=== PATIENT | male | born 1970 | race Two or more races ===

== ENCOUNTER 2017-08-05 10:44 | Emergency (ER) | payer BC ==
[2017-08-05] MEDS ORDERED: Ketorolac 30 MG/ML SDV IVPUSH ONE (11:25)
--- NOTE | 2017-08-05 11:28 | EDM.PDOC ---
ED HPI GENERAL MEDICAL PROBLEM - General Chief Complaint: Fever Stated Complaint: ABDOMINAL PAIN Time Seen by Provider: 08/05/17 11:10 Source of Information: Reports: Patient, Family History Limitations: Reports: Language Barrier - History of Present Illness INITIAL COMMENTS - FREE TEXT/NARRATIVE: 47-year-old male presents with muscle pain, generalized malaise and fever for the past 12-24 hours. He worked hard yesterday, lifting heavy boxes for 8 straight hours, last night he had chills and today has abdominal pain and upper extremity pain in the shoulders and upper arms. No nausea or vomiting, no dysuria. No rashes. He has no tick exposure or exposure to someone else that's ill. 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 Severity: Moderate Associated Symptoms: Reports: Fever/Chills, Malaise. Denies: Cough, Headaches, Loss of Appetite, Nausea/Vomiting, Shortness of Breath Generalized Pain Score (Numeric/FACES): 5 - Related Data Allergies Allergy/AdvReac Type Severity Reaction Status Date / Time No Known Allergies Allergy Verified 08/05/17 11:07 Home Meds: Home Meds Acetaminophen [Tylenol] 08/05/17 [History] Aspirin 08/05/17 [History] Social & Family History - Tobacco Use Smoking Status *Q: Heavy Tobacco Smoker Years of Tobacco use: 20 Packs/Tins Daily: 1 - Caffeine Use Caffeine Use: Reports: Coffee, Soda - Recreational Drug Use Recreational Drug Use: No ED ROS GENERAL - Review of Systems Review Of Systems: See Below Constitutional: Reports: Fever, Chills, Malaise HEENT: Reports: No Symptoms Respiratory: Denies: Shortness of Breath, Cough Cardiovascular: Denies: Chest Pain GI/Abdominal: Reports: Abdominal Pain. Denies: Constipation, Diarrhea, Nausea, Vomiting : Reports: No Symptoms Musculoskeletal: Reports: Muscle Pain (Especially in his upper extremities and shoulders) Skin: Reports: No Symptoms. Denies: Rash Neurological: Reports: No Symptoms ED EXAM, GENERAL - Physical Exam Exam: See Below Exam Limited By: No Limitations General Appearance: Alert, No Apparent Distress (Looks uncomfortable but not distressed) Eye Exam: Bilateral Eye: Normal Inspection Respiratory/Chest: No Respiratory Distress, Lungs Clear Cardiovascular: Regular Rate, Rhythm, Tachycardia GI/Abdominal: Soft, Tender (Does react with tenderness to palpation across the lower abdomen, especially the right side) Extremities: Normal Inspection Neurological: Alert, Oriented Psychiatric: Normal Affect, Normal Mood Skin Exam: Warm, Dry Course - Vital Signs Last Recorded V/S: Last Vital Signs Temp 99.5 F 08/05/17 11:09 Pulse 112 H 08/05/17 11:09 Resp 15 08/05/17 11:09 BP 100/75 08/05/17 11:09 Pulse Ox 94 L 08/05/17 11:09 - Orders/Labs/Meds Labs: Laboratory Tests 08/05/17 08/05/17 Range/Units 11:30 11:30 WBC 11.6 H (4.5-11.0) K/uL RBC 5.22 (4.30-5.90) M/uL Hgb 16.4 H (12.0-15.0) g/dL Hct 48.2 (40.0-54.0) % MCV 92 (80-98) fL MCH 31 (27-31) pg MCHC 34 (32-36) % Plt Count 205 (150-400) K/uL Neut % (Auto) 59 (36-66) % Lymph % (Auto) 23 L (24-44) % [place] % (Auto) 16 H (2-6) % Eos % (Auto) 3 (2-4) % Baso % (Auto) 0 (0-1) % Sodium 135 L (140-148) mmol/L Potassium 4.3 (3.6-5.2) mmol/L Chloride 100 (100-108) mmol/L Carbon Dioxide 27 (21-32) mmol/L Anion Gap 12.3 (5.0-14.0) mmol/L BUN 11 (7-18) mg/dL Creatinine 1.2 (0.8-1.3) mg/dL Est Cr Clr Drug Dosing 69.41 mL/min Estimated GFR (MDRD) > 60 (>60) Glucose 108 H (74-106) mg/dL Calcium 8.8 (8.5-10.1) mg/dL Total Bilirubin 0.7 (0.2-1.0) mg/dL AST 18 (15-37) U/L ALT 29 (12-78) U/L Alkaline Phosphatase 55 (46-116) U/L Total Protein 7.7 (6.4-8.2) g/dL Albumin 3.2 L (3.4-5.0) g/dL Globulin 4.5 H (2.3-3.5) g/dL Albumin/Globulin Ratio 0.7 L (1.2-2.2) Meds: Medications Discontinued Medications Generic Name Dose Route Start Last Admin Trade Name Freq PRN Reason Stop Dose Admin Sodium Chloride 1,000 mls @ 1,000 mls/hr 08/05/17 11:30 08/05/17 11:36 Normal Saline IV 1,000 mls/hr ASDIRECTED IVELISSE Administration Sodium Chloride 85 mls @ 3 mls/sec 08/05/17 12:46 08/05/17 12:58 Normal Saline IV 08/05/17 12:47 3 mls/sec ONETIME ONE Administration Iopamidol 150 ml 08/05/17 13:00 08/05/17 12:58 Isovue-300 (61%) IV 150 ml . DIRECTED IVELISSE Administration Ketorolac Tromethamine 30 mg 08/05/17 11:25 08/05/17 11:37 Toradol IVPUSH 08/05/17 11:26 30 mg ONETIME ONE Administration Levofloxacin 500 mg 08/05/17 14:15 08/05/17 14:19 Levaquin PO 08/05/17 14:16 500 mg ONETIME ONE Administration Sodium Chloride 10 ml 08/05/17 12:46 08/05/17 12:58 Saline Flush FLUSH 10 ml ONETIME PRN Administration PER RADIOLOGY PROTOCOL - Re-Assessments/Exams Free Text/Narrative Re-Assessment/Exam: 08/05/17 11:28 An IV was started, patient was given 1 L of fluids and 30 mg of IV Toradol. CBC and CMP were obtained. 08/05/17 13:44 White blood cell count was elevated, the rest of his labs were reassuring. CT the abdomen and pelvis actually revealed a left upper lobe pneumonia. Intra- abdominal findings were negative. Patient was given 500 mg of oral Levaquin, and will take 500 mg daily for the next 10 days. He can return anytime if not improving satisfactorily. He should recheck in 10-14 days. Departure - Departure Time of Disposition: 14:30 Disposition: Home, Self-Care 01 Condition: Good Clinical Impression: Pneumonia Qualifiers: Pneumonia type: due to unspecified organism Laterality: right Lung location: upper lobe of lung Qualified Code(s): J18.1 - Lobar pneumonia, unspecified organism - Discharge Information Instructions: Community-Acquired Pneumonia, Adult, [id number] Referrals: PCP,None [Primary Care Provider] - Forms: ED Department Discharge Care Plan Goals: Rest, fluids, and take antibiotic once daily every morning for 10 days. No work for the next 3 days. Return if worsening such as shortness of breath despite taking the antibiotics.
[2017-08-05] MEDS ORDERED: Sodium Chloride 0.9% 1,000 ML IV SCH (11:30)
[2017-08-05] MEDS ORDERED: Sodium Chloride 0.9% 10 ML Syringe FLUSH PRN (12:46)
[2017-08-05] MEDS ORDERED: Iopamidol 612 MG/ML 150 ML Bottle IV SCH (13:00)
[2017-08-05] MEDS ORDERED: Levofloxacin 250 MG Tab PO ONE (13:29)
--- NOTE | 2017-08-05 13:36 | CT ---
Abdomen Pelvis w Cont CLINICAL HISTORY: Fever, abdominal pain COMPARISON: None. TECHNIQUE: Axial tomographic images are obtained from the dome of the diaphragm to the pubic symphysi s without IV contrast enhancement. No oral contrast was used. Auto dosage reduction and iterative rec onstruction techniques employed. FINDINGS: There is moderate breathing motion. There is patchy infiltrate-like density in the right up per lobe suspect for pneumonia. There is a calcification in the right lower lobe which is likely gran ulomatous. There are no effusions The liver is upper limits of normal size. There appears to be some fatty infiltration.. The gallbladder is contracted. The spleen has a normal size and shape. The pancr eas shows no mass or inflammatory change. The adrenal glands appear normal bilaterally. The kidneys s how no mass, stones or hydronephrosis. The aorta has a normal contour. There is no suspicious retrope ritoneal adenopathy. The bladder has a normal contour. Seminal vesicles are mildly enlarged. No ingui nal mass is identified. IMPRESSION: Right upper lobe patchy density most likely pneumonic infiltrate Borderline hepatomegaly with diffuse fatty infiltration
[2017-08-05] MEDS ORDERED: Levofloxacin 500 MG Tab PO ONE (14:15)
== END 2017-08-05 14:30 | disposition home or self-care (01) ==
LOC: JP.ED 10:44
DX: J18.9 Pneumonia, unspecified organism (principal); F17.210 Nicotine dependence, cigarettes, uncomplicated
CPT/HCPCS: 36415; 74177; 80053; 85025; 96361; 96374; 99284; A9270; J1885; J7030; J7050

== ENCOUNTER 2017-08-09 18:14 | Emergency (ER) | payer BC ==
[2017-08-09] MEDS ORDERED: Albuterol 0.083% 2.5 MG/3 ML Neb Soln NEB ONE (19:34)
[2017-08-09] MEDS ORDERED: Budesonide 0.5 MG/2 ML Neb Susp NEB ONE (19:34)
--- NOTE | 2017-08-09 19:39 | EDM.PDOC ---
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 Treated with Levaquin. 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 Still was not breathing completely normal yet. Fever has resolved. No history of pneumonia or lung disease No other concerns currently - Related Data Allergies Allergy/AdvReac Type Severity Reaction Status Date / Time No Known Allergies Allergy Verified 08/05/17 11:07 Home Meds: Home Meds Acetaminophen [Tylenol] 650 mg PO Q6H 08/05/17 [History] Levofloxacin 500 mg PO DAILY 08/09/17 [History] predniSONE [Prednisone] 40 mg PO DAILY #10 tablet 08/09/17 [Rx] Social & Family History - Tobacco Use Years of Tobacco use: 20 Packs/Tins Daily: 1 Used Tobacco, but Quit: No - Caffeine Use Caffeine Use: Reports: Coffee, Soda - Recreational Drug Use Recreational Drug Use: No ED ROS GENERAL - Review of Systems Review Of Systems: See Below Constitutional: Reports: Fever (Improved). Denies: Decreased Appetite, Weight Loss HEENT: Reports: No Symptoms Respiratory: Reports: Shortness of Breath, Cough. Denies: Sputum Cardiovascular: Reports: Chest Pain, Dyspnea on Exertion (Some right-sided ache) . Denies: Palpitations GI/Abdominal: Reports: No Symptoms Musculoskeletal: Reports: No Symptoms Skin: Reports: No Symptoms Neurological: Reports: No Symptoms ED EXAM, GENERAL - Physical Exam Exam: See Below Exam Limited By: No Limitations General Appearance: Alert, No Apparent Distress, Other (Appears a little tired but otherwise well, vital signs normal) Eye Exam: Bilateral Eye: Normal Inspection, PERRL Ears: Normal External Exam, Hearing Grossly Normal Nose: Normal Inspection Throat/Mouth: Normal Inspection Respiratory/Chest: No Respiratory Distress, No Accessory Muscle Use, Other ( Slightly prolonged expiration, no rales or wheezes) Cardiovascular: Normal Peripheral Pulses, Regular Rate, Rhythm Neurological: Alert, No Motor/Sensory Deficits Skin Exam: Warm, Dry, Intact, No Rash Course - Vital Signs Last Recorded V/S: Last Vital Signs Temp 36.2 C 08/09/17 19:38 Pulse 89 08/09/17 19:56 Resp 14 08/09/17 19:56 BP 108/69 08/09/17 19:38 Pulse Ox 96 08/09/17 19:56 - Orders/Labs/Meds Orders: Active Orders 24 hr Category Date Time Status RT Aerosol Therapy [RC] ASDIRECTED Care 08/09/17 19:35 Active Chest 2V [CR] Stat Exams 08/09/17 19:34 Taken Meds: Medications Discontinued Medications Generic Name Dose Route Start Last Admin Trade Name Freq PRN Reason Stop Dose Admin Albuterol 2.5 mg 08/09/17 19:34 08/09/17 19:43 Proventil Neb Soln [facility] 08/09/17 19:35 2.5 mg ONETIME ONE Administration Budesonide 0.5 mg 08/09/17 19:34 08/09/17 19:55 Pulmicort NEB 08/09/17 19:35 0.5 mg ONETIME ONE Administration Prednisone 40 mg 08/09/17 21:11 08/09/17 21:27 Prednisone PO 08/09/17 21:12 40 mg ONETIME ONE Administration - Re-Assessments/Exams Free Text/Narrative Re-Assessment/Exam: 08/09/17 19:38 47-year-old male with pneumonia diagnosed 4 days ago, still has some shortness of breath. Albuterol and budesonide by nebulizer Chest x-ray 08/09/17 21:11 Chest x-ray shows a faint patch left upper lobe CT scan reviewed showed right upper lobe pneumonia Patient was told he had left upper lobe In any case cough and fever have improved. Does have some chest tightness Improved nebulizer Prednisone 20 mg by mouth Continue current antibiotics Note for work written Departure - Departure Time of Disposition: 21:02 Disposition: Home, Self-Care 01 Clinical Impression: Bronchospasm Community acquired pneumonia Qualifiers: Laterality: right Lung location: upper lobe of lung Qualified Code(s): J18.1 - Lobar pneumonia, unspecified organism - Discharge Information Prescriptions: predniSONE [Prednisone] 40 mg PO DAILY #10 tablet Instructions: Bronchospasm, Adult, Community-Acquired Pneumonia, Adult Referrals: PCP,None [Primary Care Provider] - Forms: ED Department Discharge, ED Return to Work/School Form Additional Instructions: Continue your antibiotic Levaquin You have some spasm in your airways and for this you're being prescribed 5 days of prednisone Get rechecked in 10 days - My Orders Last 24 Hours: My Active Orders 08/09/17 19:34 Chest 2V [CR] Stat 08/09/17 19:35 RT Aerosol Therapy [RC] ASDIRECTED - Assessment/Plan Last 24 Hours: My Active Orders 08/09/17 19:34 Chest 2V [CR] Stat 08/09/17 19:35 RT Aerosol Therapy [RC] ASDIRECTED
[2017-08-09] MEDS ORDERED: predniSONE 20 MG Tab PO ONE (21:11)
--- NOTE | 2017-08-10 08:51 | CR ---
Chest 2V INDICATION: Cough, dyspnea, right upper lobe pneumonia COMPARISON: None FINDINGS: Two views. Heart size normal. Left upper lobe infiltrate consistent with pneumonia. Remainder of the lungs clear. No pleural effusion.
== END 2017-08-09 21:36 | disposition home or self-care (01) ==
LOC: JP.ED 18:14
DX: J98.01 Acute bronchospasm (principal); J18.9 Pneumonia, unspecified organism; F17.210 Nicotine dependence, cigarettes, uncomplicated; Z79.899 Other long term (current) drug therapy
CPT/HCPCS: 71046; 94640; 99284; A9270

== ENCOUNTER 2019-04-18 04:41 | Emergency (ER) | payer BC, OTHER ==
--- NOTE | 2019-04-18 05:43 | EDM.PDOC ---
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 He has significant discomfort in the left foot, pain, and some bruising developing on the top of the foot. Ankle is not involved. No other injury. Onset: Sudden Duration: Hour(s): (Within the last hour) Location: Reports: Lower Extremity, Left Associated Symptoms: Reports: No Other Symptoms left foot Pain Score (Numeric/FACES): 7 - Related Data Allergies Allergy/AdvReac Type Severity Reaction Status Date / Time No Known Allergies Allergy Verified 04/18/19 05:01 Home Meds: Home Meds NK [No Known Home Meds] 04/18/19 [History] Past Medical History - Infectious Disease History Infectious Disease History: Reports: Chicken Pox Social & Family History - Tobacco Use Smoking Status *Q: Current Every Day Smoker Years of Tobacco use: 30 Packs/Tins Daily: 1 - Caffeine Use Caffeine Use: Reports: Coffee, Soda - Recreational Drug Use Recreational Drug Use: No Review of Systems - Review of Systems Review Of Systems: See Below Constitutional: Denies: Fever Respiratory: Denies: Shortness of Breath Cardiovascular: Denies: Chest Pain Skin: Reports: Bruising (Bruising is developing on the top of the foot) ED EXAM, GENERAL - Physical Exam Exam: See Below Exam Limited By: No Limitations General Appearance: Alert, No Apparent Distress Head: Atraumatic Respiratory/Chest: No Respiratory Distress Extremities: Other (Exam is otherwise limited to the lower extremities. The right foot is normal, the left has significant swelling over the dorsal aspect with a small amount of bruising developing. He is very tender to palpation but not deformed other than the swelling) Skin Exam: Ecchymosis (A small amount of ecchymosis is developing on the top of the foot) Course - Vital Signs Last Recorded V/S: Last Vital Signs Temp 96.5 F L 04/18/19 05:05 Pulse 89 04/18/19 05:05 Resp 17 04/18/19 05:05 BP 127/81 04/18/19 05:05 Pulse Ox 95 04/18/19 05:05 - Re-Assessments/Exams Free Text/Narrative Re-Assessment/Exam: 04/18/19 05:44 3 view left foot x-ray was obtained which was negative for fracture. A 3 inch Dmitriy wrap was applied to the foot, he will take ibuprofen for pain, elevate the foot, and use crutches for ambulation until he improves. If not improved satisfactorily after 5 to 7 days, he can recheck with orthopedics or podiatry at the clinic. Departure - Departure Time of Disposition: 06:05 Disposition: Home, Self-Care 01 Clinical Impression: Contusion of foot, left Qualifiers: Encounter type: initial encounter Qualified Code(s): S90.32XA - Contusion of left foot, initial encounter - Discharge Information Instructions: Contusion, [id number] Referrals: PCP,None [Primary Care Provider] - Forms: ED Department Discharge Care Plan Goals: Envuelva el pie, eleve cuando pueda, y el hielo ayudar con la hinchazn. Use muletas para ayudar con la deambulacin hasta mejorar. Si an no puede soportar peso despus de 5 a 7 higgins, considere volver a revisar en la clnica con podologa u ortopedia. Wrap foot, elevate when able, and ice will help with swelling. Use crutches to assist with ambulation until improving. If still unable to bear weight after 5 to 7 days, consider rechecking at the clinic with podiatry or orthopedics. Sepsis Event Note - Evaluation Sepsis Screening Result: No Definite Risk - Focused Exam Date Exam was Performed: 04/20/19 Time Exam was Performed: 17:07
--- NOTE | 2019-04-18 09:53 | CR ---
Foot Comp Min 3V Lt CLINICAL HISTORY: Injury, swelling FINDINGS: There is moderate soft tissue swelling particularly over the dorsum of the foot. There is no acute fracture or dislocation within the foot. No destructive changes are present. There is some osteoarthritic change at the first MTP joint. There are mild hammertoe deformities. IMPRESSION: Moderate soft tissue swelling Osteophytic changes No acute fracture
== END 2019-04-18 06:05 | disposition home or self-care (01) ==
LOC: JP.ED 04:41
DX: S90.32XA Contusion of left foot, initial encounter (principal); F17.210 Nicotine dependence, cigarettes, uncomplicated; W23.0XXA Caught, crushed, jammed, or pinched between moving objects, initial encounter; Y99.0 Civilian activity done for income or pay
CPT/HCPCS: 73630-26-LT; 73630-LT; 99283-25

== ENCOUNTER 2020-04-17 18:08 | Emergency (ER) | payer BC ==
--- NOTE | 2020-04-17 19:22 | EDM.PDOC ---
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 It is starting to drain and requesting antibiotics. The area is very painful and difficult to sit or lay down. This happens every year and antibiotic usual cure the it. He suspects the boils is caused by sweating during work. denies fever, chills, nausea, vomiting, diarrhea or back pain. denies any drug allergies Onset: Gradual Onset Date: 04/11/20 Duration: Getting Worse Location: Reports: Other (buttocks) Quality: Reports: Ache, Pressure, Throbbing Severity: Moderate Improves with: Reports: Rest Worsens with: Reports: Movement Associated Symptoms: Reports: No Other Symptoms Buttock Pain Score (Numeric/FACES): 9 - Related Data Allergies Allergy/AdvReac Type Severity Reaction Status Date / Time No Known Allergies Allergy Verified 04/17/20 18:59 Home Meds: Home Meds NK [No Known Home Meds] 04/18/19 [History] Past Medical History - Infectious Disease History Infectious Disease History: Reports: Chicken Pox Social & Family History - Tobacco Use Tobacco Use Status *Q: Current Every Day Tobacco User Years of Tobacco use: 15 Packs/Tins Daily: 0.5 - Caffeine Use Caffeine Use: Reports: Coffee, Energy Drinks, Soda - Recreational Drug Use Recreational Drug Use: No ED ROS GENERAL - Review of Systems Review Of Systems: See Below Constitutional: Reports: Other (painful boil) HEENT: Reports: No Symptoms Respiratory: Reports: No Symptoms Cardiovascular: Reports: No Symptoms Endocrine: Reports: No Symptoms GI/Abdominal: Reports: No Symptoms : Reports: No Symptoms Musculoskeletal: Reports: No Symptoms Skin: Reports: Other (abscess to left upper buttocks) Neurological: Reports: No Symptoms Psychiatric: Reports: No Symptoms Hematologic/Lymphatic: Reports: No Symptoms Immunologic: Reports: No Symptoms ED EXAM, SKIN/RASH Exam: See Below Exam Limited By: Language Barrier (Australian) General Appearance: Alert, WD/WN, Moderate Distress Ears: Normal External Exam, Hearing Grossly Normal Throat/Mouth: Normal Lips, Normal Voice Head: Atraumatic, Normocephalic Respiratory/Chest: No Respiratory Distress Rectal (Males) Exam: Tenderness (left upper buttocks with open mucopurulent drainage noted area is very tender to touch, erythema) Back Exam: Normal Inspection, Full Range of Motion, NT Neurological: Alert, Oriented, Normal Cognition, Normal Gait, No Motor/Sensory Deficits Psychiatric: Normal Affect, Normal Mood Skin: Warm, Erythema (left upper buttock), Increased Warmth (left upper buttocks), Wound/Incision (open draining boil noted to left upper buttocks) Location, Skin: Other (left upper buttocks) Characteristics: Erythematous, Other (tiny open wound with discharge thin pale white to green. no odor) Associated features: Warmth, Tenderness, Swelling Lymphatic: No Adenopathy Course - Vital Signs Last Recorded V/S: Last Vital Signs Temp 36.6 C 04/17/20 19:08 Pulse 95 04/17/20 19:08 Resp 16 04/17/20 19:08 BP 133/83 04/17/20 19:08 Pulse Ox 93 L 04/17/20 19:08 - Re-Assessments/Exams Free Text/Narrative Re-Assessment/Exam: 04/17/20 discussed can dany boil with explanation of procedure and Mr. Quiles declines would like to start with antibiotics first discussed referral to Surgery Clinic for further care and treatment- declines would like to see if antibiotics resolve boil. discussed will order antibiotics, pain control, home care treatment with warm soaks agree with plan of care he reports no further question and understand instructions all discussion was completed with Patient and family member with air chipper present for entire visit. Departure - Departure Time of Disposition: 19:19 Disposition: Home, Self-Care 01 Condition: Good Clinical Impression: Abscess - Discharge Information *PRESCRIPTION DRUG MONITORING PROGRAM REVIEWED*: Not Applicable *COPY OF PRESCRIPTION DRUG MONITORING REPORT IN PATIENT TRUNG: Not Applicable Instructions: Skin Abscess Referrals: PCP,None [Primary Care Provider] - Forms: ED Department Discharge, ED Return to Work/School Form Care Plan Goals: skin abscess -take medication antibiotic two times a day for 10 days -hydrocodone one to two every 4 to 6 hours as needed for pain -may also use over the counter tylenol or motrin as directed -soak in warm tub for comfort at least 2 to 3 times a day -consider follow up with Surgery Clinic Return to ER for increase pain, fever, chills, or not improved. Sepsis Event Note (ED) - Evaluation Sepsis Screening Result: No Definite Risk - Focused Exam Vital Signs: Vital Signs Temp Pulse Resp BP Pulse Ox 04/17/20 19:08 36.6 C 95 16 133/83 93 L 04/17/20 18:46 36.6 C 95 16 133/83 93 L - Problem List & Annotations (1) Abscess SNOMED Code(s): 873245613 Code(s): L02.91 - CUTANEOUS ABSCESS, UNSPECIFIED Status: Acute Priority: High Current Visit: Yes - Problem List Review Problem List Initiated/Reviewed/Updated: Yes - Assessment/Plan Plan: skin abscess -take medication antibiotic two times a day for 10 days -hydrocodone one to two every 4 to 6 hours as needed for pain -may also use over the counter tylenol or motrin as directed -soak in warm tub for comfort at least 2 to 3 times a day -consider follow up with Surgery Clinic Return to ER for increase pain, fever, chills, or not improved.
== END 2020-04-17 19:32 | disposition home or self-care (01) ==
LOC: JP.ED 18:08
DX: L02.31 Cutaneous abscess of buttock (principal); Z72.0 Tobacco use
CPT/HCPCS: 99283

== ENCOUNTER 2020-04-23 17:17 | Emergency (ER) | payer BC ==
--- NOTE | 2020-04-23 18:37 | EDM.PDOC ---
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 No other complaints he does need a work note - Related Data Allergies Allergy/AdvReac Type Severity Reaction Status Date / Time No Known Allergies Allergy Verified 04/17/20 18:59 Home Meds: Home Meds NK [No Known Home Meds] 04/18/19 [History] Past Medical History - Infectious Disease History Infectious Disease History: Reports: Chicken Pox Social & Family History - Caffeine Use Caffeine Use: Reports: Coffee, Energy Drinks, Soda ED ROS GENERAL - Review of Systems Review Of Systems: See Below Skin: Reports: Rash, Wound ED EXAM, SKIN/RASH Exam: See Below Text/Narrative:: Examination of the gluteal cleft reveals a healed pilonidal cyst it is not appear erythematous it is tender to the touch Course - Vital Signs Last Recorded V/S: Last Vital Signs Temp 97.6 F 04/23/20 18:04 Pulse 100 04/23/20 18:04 Resp 16 04/23/20 18:04 BP 128/76 04/23/20 18:04 Pulse Ox 94 L 04/23/20 18:04 Departure - Departure Time of Disposition: 18:36 Disposition: Home, Self-Care 01 Condition: Fair Clinical Impression: Pilonidal cyst - Discharge Information Instructions: Pilonidal Cyst Referrals: PCP,None [Primary Care Provider] - Forms: ED Department Discharge, ED Return to Work/School Form Sepsis Event Note (ED) - Focused Exam Vital Signs: Vital Signs Temp Pulse Resp BP Pulse Ox 04/23/20 18:04 97.6 F 100 16 128/76 94 L - Assessment/Plan Plan: Assessment Acuity = acute Site and laterality = pilonidal cyst without abscess Etiology = unknown Manifestations = pain Location of injury = Home Lab values = none Plan Consultation with general surgery set up for further evaluation and treatment This note was dictated using SecureAlert voice recognition software please call with any questions on syntax or grammar.
== END 2020-04-23 18:52 | disposition home or self-care (01) ==
LOC: JP.ED 17:17
DX: L05.91 Pilonidal cyst without abscess (principal)
CPT/HCPCS: 99282

== ENCOUNTER 2020-09-25 17:26 | Emergency (ER) | payer SELFPAY ==
[2020-09-25] MEDS ORDERED: Ketorolac 30 MG/ML SDV IM ONE (18:19)
--- NOTE | 2020-09-25 18:19 | EDM.PDOC ---
ED HPI GENERAL MEDICAL PROBLEM - General Chief Complaint: Lower Extremity Injury/Pain Stated Complaint: KNEE PAIN Time Seen by Provider: 09/25/20 18:04 Source of Information: Reports: Patient History Limitations: Reports: No Limitations, Language Barrier ([employer] services used to evaluate the patient.) - History of Present Illness INITIAL COMMENTS - FREE TEXT/NARRATIVE: Sumanth is a 50-year-old male presenting to the ED for evaluation of right knee pain that started 2 days ago. 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 Since then he has been doing a lot of standing, bending, and twisting and the pain has gotten significantly worse. He did not go into work today because of increasing pain and swelling prompting him to come in for evaluation. He denies any specific injury other than kneeling. - Related Data Allergies Allergy/AdvReac Type Severity Reaction Status Date / Time No Known Allergies Allergy Verified 09/25/20 17:43 Home Meds: Home Meds NK [No Known Home Meds] 04/18/19 [History] Past Medical History - Past Health History Medical/Surgical History: Denies Medical/Surgical History - Infectious Disease History Infectious Disease History: Reports: Chicken Pox Social & Family History - Caffeine Use Caffeine Use: Reports: None Review of Systems - Review of Systems Review Of Systems: See Below Constitutional: Reports: No Symptoms Musculoskeletal: Reports: Joint Pain (Right knee pain and swelling), Joint Swelling (Right knee) ED EXAM, GENERAL - Physical Exam Exam: See Below Exam Limited By: No Limitations General Appearance: Alert, Mild Distress Peripheral Pulses: 2+: Popliteal (R), Posterior Tibial (R) Extremities: No Pedal Edema, Joint Swelling (Significant swelling and tenderness over the right pes anserine bursa. Mild tenderness over the right lateral joint line.), Limited Range of Motion (Limited range of motion secondary to swelling) Neurological: Alert, Oriented, Normal Cognition, No Motor/Sensory Deficits Departure - Departure Time of Disposition: 18:45 Disposition: Home, Self-Care 01 Clinical Impression: Pes anserine bursitis, Right anterior knee pain - Discharge Information Instructions: Acute Knee Pain, Adult, Pes Anserine Bursitis Referrals: PCP,Unknown [Primary Care Provider] - Care Plan Goals: Te estoy comenzando a lavern un medicamento antiinflamatorio jaimie. Tmelo con allison pequea cantidad de comida para proteger el estmago. Hielo y eleve la rodilla cada 2 horas hannah 15 a 20 minutos hannah los prximos 2 higgins. [place] reducir la inflamacin y el dolor. He incluido allison nota de trabajo que lo santiago del trabajo hasta el 28/09/2020. Si la rodilla empeora, por favor regrese a la aleena de emergencias para ser reevaluado. El medicamento se llama toradol. Me gustara que tomara 1 tableta con allison pequea cantidad de comida 4 veces al da hannah 5 higgins. - Problem List & Annotations (1) Pes anserine bursitis SNOMED Code(s): 414044761 Code(s): M70.50 - OTHER BURSITIS OF KNEE, UNSPECIFIED KNEE Status: Acute Current Visit: Yes (2) Right anterior knee pain SNOMED Code(s): 571325366 Code(s): M25.561 - PAIN IN RIGHT KNEE Status: Acute Current Visit: Yes - Problem List Review Problem List Initiated/Reviewed/Updated: Yes
== END 2020-09-25 18:50 | disposition home or self-care (01) ==
LOC: JP.ED 17:26
DX: M70.51 Other bursitis of knee, right knee (principal)
CPT/HCPCS: 96372; 99283; J1885